=== PATIENT | female | born 1980 | race Caucasian/White ===

== ENCOUNTER 2019-01-02 13:32 | Emergency (ER) | payer OTHER ==
[~2019-01-02] VITALS: Ht 162.6 cm; Wt 89.4 kg
--- NOTE | 2019-01-02 14:20 | PHYS DOC ---
Adult General Chief Complaint Chief Complaint: ABDOMINAL PAIN IN [facility] HPI Patient is a 38 year old female who presents with complaining of abdominal pain. Patient states she had reversal tubal ligation several months ago and had normal menstruation in 11/20/2018. Patient states she had a hCG Quant of less than at [facility] on December 15 . Patient started with her menstruation on that was heavier than her usual and is still has spotting and bleeding. Patient complaining of severe right lower quadrant pain yesterday and cramping abdominal pain today. Patient states she had 2 faint positive home against test. Patient states her friend who is [employer] told her about possible ectopic and she wants to check for possible ectopic . She denies fever and chills, urinary symptoms, nausea and vomiting, diarrhea and constipation. Review of Systems Review of Systems Constitutional: Denies fever or chills [] Eyes: Denies change in visual acuity, redness, or eye pain [] HENT: Denies nasal congestion or sore throat [] Respiratory: Denies cough or shortness of breath [] Cardiovascular: No additional information not addressed in HPI [] GI: Reports abdominal pain, denies nausea, vomiting, bloody stools or diarrhea [ ] : Denies dysuria or hematuria [] Musculoskeletal: Denies back pain or joint pain [] Integument: Denies rash or skin lesions [] Neurologic: Denies headache, focal weakness or sensory changes [] Endocrine: Denies polyuria or polydipsia [] All other systems were reviewed and found to be within normal limits, except as documented in this note. Physical Exam Physical Exam Constitutional: Well developed, well nourished, no acute distress, non-toxic appearance. [] HENT: Normocephalic, atraumatic. Eyes: PERRLA, EOMI, conjunctiva normal, no discharge. [] Neck: Normal range of motion, no tenderness, supple, no stridor. [] Cardiovascular:Heart rate regular rhythm, no murmur [] Lungs & Thorax: Bilateral breath sounds clear to auscultation [] Abdomen: Bowel sounds normal, soft, no tenderness, no masses, no pulsatile masses. [] Skin: Warm, dry, no erythema, no rash. [] Back: No tenderness, no CVA tenderness. [] Extremities: No tenderness, no cyanosis, no clubbing, ROM intact, no edema. [] Neurologic: Alert and oriented X 3, normal motor function, normal sensory function, no focal deficits noted. [] Psychologic: Affect normal, judgement normal, mood normal. [] EKG EKG [] Radiology/Procedures Radiology/Procedures [address] [address] IMAGING REPORT Signed PATIENT: NILTON WILSON ACCOUNT: [id number] : 1980 LOCATION: ER AGE: 38 SEX: F EXAM STATUS: REG ER ORD. PHYSICIAN: NELA YOUSIF MD REASON: right lower quadrant pain PROCEDURE: OB <14 WKS W/TV Exam performed: OB Ultrasound first trimester. Indication: Right lower quadrant pain, positive test, tubal reversal in July 2018, spotting for 3 days Date of Service: January 02, 2019. Comparison: None available Technique: Transabdominal and transvaginal Findings: The uterus measures 10.5 x 6.9 x 6.2 cm. The endometrial stripe measures 5.5 mm. No intra or extrauterine gestational sac is seen. scar and nabothian cysts seen in the lower segment Both ovaries are normal. The right ovary measures 2.3 x 1.7 x 1.7 cm , the left ovary measures 3.1 x 2.0 x 2.0 cm. Symmetric vascularity seen in both ovaries. There is no solid or cystic mass lesion. Trace amount of simple fluid seen in the posterior cul-de-sac Impression: 1. No evidence of intra or extrauterine noted. Given positive test, short-term interval follow-up pelvic ultrasound and serial quantitative beta-hCG level may be obtained. Electronically signed by: uLlu Chen MD (01/02/2019 5:01 PM) [facility] DICTATED AND SIGNED BY: LULU CHEN MD DATE: 01/02/19 3645 CC: BLANCA KAPOOR PA-C; NELA YOUSIF MD ~ Course & Med Decision Making Course & Med Decision Making Pertinent Labs and Imaging studies reviewed. (See chart for details) Evaluation of patient in ER showed 38-year-old female patient with reversal of tubal ligation and concern for with complaining of abdominal pain. Patient had hCG level of 986 and or the ultrasound did not show intra or extrauterine . Patient instructed to follow up with her [employer] in 48 hours for repeat hCG Quant and possible OB ultrasound. Patient had blood type of O- and RhoGAM was given. Dragon Disclaimer Dragon Disclaimer This electronic medical record was generated, in whole or in part, using a voice recognition dictation system. Departure Departure: Impression: Primary Impression: Vaginal bleeding during Additional Impression: Rh negative status during Disposition: HOME, SELF-CARE (at 1720) Condition: STABLE Referrals: BLANCA KAPOOR PA-C (PCP) Patient Instructions: Vaginal Bleeding During , First Trimester Additional Instructions: Follow-up with your [employer] in 48 hours for repeat hCG quantitative May take Tylenol as needed for abdominal pain and cramping Return to emergency room if not getting better Problem Qualifiers NELA YOUSIF MD Jan 02, 2019 14:20
[2019-01-02 14:57] LABS: BASO % 0 % (0-3); EOS # 0.1 x10^3/uL (0.0-0.7); EOS % 1 % (0-3); HEMATOCRIT 42.2 % (36.0-47.0); LYMPH # 1.3 x10^3/uL (1.0-4.8); LYMPH % 20 % (24-48); MEAN CORPUSCULAR HEMOGLOBIN 29 pg (25-35); MEAN CORPUSCULAR HGB CONC 33 g/dL (31-37); MEAN CORPUSCULAR VOLUME 87 fL (79-100); MONO # 0.4 x10^3/uL (0.0-1.1); MONO % 6 % (0-9); NEUT # 4.8 x10^3uL (1.8-7.7); NEUT % 73 % (31-73); PLATELET COUNT 298 x10^3/uL (140-400); RED BLOOD COUNT 4.84 x10^6/uL (3.50-5.40); RED CELL DISTRIBUTION WIDTH 17.2 % (11.5-14.5); WHITE BLOOD COUNT 6.6 x10^3/uL (4.0-11.0)
[2019-01-02 15:05] LABS: ALBUMIN 3.9 g/dL (3.4-5.0); CALCIUM 9.2 mg/dL (8.5-10.1); CREATININE 0.8 mg/dL (0.6-1.0); GFR 80.7; POTASSIUM 3.4 mmol/L (3.5-5.1); TOTAL BILIRUBIN 0.3 mg/dL (0.2-1.0); TOTAL PROTEIN 7.8 g/dL (6.4-8.2)
--- NOTE | 2019-01-02 17:05 | RAD ---
Exam performed: OB Ultrasound first trimester. Indication: Right lower quadrant pain, positive test, tubal reversal in July 2018, spotting for 3 days Date of Service: January 02, 2019. Comparison: None available Technique: Transabdominal and transvaginal Findings: The uterus measures 10.5 x 6.9 x 6.2 cm. The endometrial stripe measures 5.5 mm. No intra or extrauterine gestational sac is seen. scar and nabothian cysts seen in the lower segment Both ovaries are normal. The right ovary measures 2.3 x 1.7 x 1.7 cm , the left ovary measures 3.1 x 2.0 x 2.0 cm. Symmetric vascularity seen in both ovaries. There is no solid or cystic mass lesion. Trace amount of simple fluid seen in the posterior cul-de-sac Impression: 1. No evidence of intra or extrauterine noted. Given positive test, short-term interval follow-up pelvic ultrasound and serial quantitative beta-hCG level may be obtained. Electronically signed by: Lulu Chen MD (01/02/2019 5:01 PM) [facility]
[2019-01-02 17:30] VITALS: BP 120/74
[2019-01-02 17:58] VITALS: BP 115/60
[2019-01-02 18:00] VITALS: BP 115/60
== END 2019-01-02 18:00 | disposition home or self-care (01) ==
LOC: ER 13:32
DX: O46.91 Antepartum hemorrhage, unspecified, first trimester (principal); O36.0910 Maternal care for other rhesus isoimmunization, first trimester, not applicable or unspecified; Z3A.00 Weeks of gestation of pregnancy not specified; Z98.51 Tubal ligation status
CPT/HCPCS: 36415; 36430; 76801; 76817; 80053; 84702; 85025; 86850; 86900; 86901; 99285; J2791